=== PATIENT | male | born 1995 | race Caucasian/White ===

== ENCOUNTER 2025-07-22 07:57 | Outpatient (OUT) | payer BC, SELFPAY ==
--- NOTE | 2025-07-22 08:11 | ECG_ITS ---
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
--- NOTE | 2025-07-22 08:48 | PM.PRESUREVA ---
History of Present Illness History of Present Illness Chief complaint: Left Ureteral Stone Narrative: Patient presents for presurgical testing. The patient states he was diagnosed with a kidney stone about 7 weeks ago and was hoping the stone would pass, but he feels that the stone has not moved and he is continuing to have left sided groin pain. He denies flank pain, dysuria, hematuria, nausea, vomiting, or any other complaints. Review of Systems ROS Narrative REVIEW OF SYSTEMS: Negative except as stated in HPI, ten or more systems reviewed. Constitutional: No fever, chills, weakness ENT: No sore throat or epistaxis Cardiovascular: No edema, chest pain, palpitations, or activity intolerance Respiratory: No shortness of breath, cough, or wheezing Musculoskeletal: No joint pain or swelling Gastrointestinal: No abdominal pain, constipation, diarrhea, or vomiting Genitourinary: No dysuria or hematuria Neurological: No numbness, tingling, weakness, or headache Psychiatric: No mood changes PFSH PFSH Medical History (Updated 07/22/25 @ 08:52 by Mare Jurado NP) Left ureteral stone ?N20.1 - Calculus of ureter (ICD-10) Knee pain ?M25.569 - Pain in unspecified knee (ICD-10) Back pain ?M54.9 - Dorsalgia, unspecified (ICD-10) Migraine ?G43.909 - Migraine, unspecified, not intractable, without status migrainosus (ICD-10) Prostatitis ?N41.9 - Inflammatory disease of prostate, unspecified (ICD-10) Kidney stones ?N20.0 - Calculus of kidney (ICD-10) Heartburn ?R12 - Heartburn (ICD-10) Arrhythmia ?I49.9 - Cardiac arrhythmia, unspecified (ICD-10) Hypertension ?I10 - Essential (primary) hypertension (ICD-10) Surgical History (Updated 07/22/25 @ 08:32 by Mare Jurado NP) History of wisdom tooth extraction ?K08.409 - Partial loss of teeth, unspecified cause, unspecified class (ICD-10) Family History (Updated 07/22/25 @ 08:32 by Mare Jurado NP) Other Family history of DVT Family history of cancer Family history of diabetes mellitus Family history of renal failure Macular degeneration Social History (Updated 07/22/25 @ 08:27 by Mare Jurado NP) Within the past year, how often did you have a drink containing alcohol: never Score interpretation: A score less than 4 is consistent with normal alcohol consumption. Smoking status: Never smoker Non-prescribed substance use: denies use Previous occupational history: PT Highest level of school completed/degree received: Doctoral degree Meds Home Medications and Allergies Home Medications ?Medication ?Instructions ?Recorded ?Confirmed ?Type alfuzosin 10 mg tablet,extended 10 mg PO DAILY 07/22/25 07/22/25 History release 24 hr dutasteride 0.5 mg capsule 0.5 mg PO DAILY 07/22/25 07/22/25 History losartan 25 mg tablet 25 mg PO QPM 07/22/25 07/22/25 History Allergies Allergy/AdvReac Type Severity Reaction Status Date / Time No Known Drug Allergies Allergy Verified 07/22/25 08:25 Exam Narrative Exam Narrative: Constitutional: Awake, alert, comfortable, well-appearing, nontoxic, interactive, vital signs as charted Head: Normocephalic, atraumatic Neck: Supple, normal appearance, normal range of motion, no meningeal signs, no lymphadenopathy Respiratory: No respiratory distress, breath sounds clear Cardiovascular: Regular rate and rhythm, strong and regular heart tones Abdomen: Nontender, normal bowel sounds, soft, no CVA tenderness Musculoskeletal: Normal gait, no swelling or edema Skin: No rashes or induration, no lesions, only visible skin inspected Neuro: No neurological deficits, normal sensation Psychiatric: Oriented ?3, normal affect Assessment and Plan Assessment and Plan (1) Left ureteral stone: Plan Cystoscopy, left retrograde, left ureteroscopy, holmium vs. thulium laser, possible left stent placement schedule Dr. Arnett July 24, 2025
[2025-07-22 08:59] LABS: Hematocrit 44.2 % (42.0-54.0); Hemoglobin 15.3 g/dL (14.0-18.0); Immature Granulocytes Abs Auto 0.01 10^3/uL (0.00-0.03); Immature Granulocytes Pct Auto 0.2 % (0.0-0.5); Lymphocytes Absolute Auto 1.9 10^3/uL (1.2-3.8); Mean Corpuscular HGB Conc 34.6 g/dL (29.9-35.2); Mean Corpuscular Hemoglobin 29.7 pg (25.9-34.0); Mean Corpuscular Volume 85.7 fL (80.0-94.0); Platelet Count 163 10^3/uL (150-450); Red Blood Count 5.16 10^6/uL (4.70-6.10); White Blood Count 5.9 10^3/uL (4.0-11.0)
[2025-07-22 09:13] LABS: INR 1.03; Partial Thromboplastin Time 28.8 sec (22.3-36.2); Prothrombin Time 10.9 sec (9.0-11.6)
[2025-07-22 09:30] LABS: Anion Gap 11.4; Blood Urea Nitrogen 13.0 mg/dL (7.0-18.0); Calcium 8.9 mg/dL (8.5-10.1); Carbon Dioxide 27.5 mmol/L (21.0-32.0); Chloride 105 mmol/L (98-107); Estimated GFR (African America >60 (>=60 mL/min/1.73m^2); Estimated GFR (Non-African Ame >60 (>=60 mL/min/1.73m^2); Glucose 97 mg/dL (74-106); Potassium 3.9 mmol/L (3.5-5.1); Sodium 140 mmol/L (136-145)
== END 2025-07-22 07:58 | disposition home or self-care (01) ==
PROVIDERS: Visit Provider Urology
DX: Z01.810 Encounter for preprocedural cardiovascular examination (principal); Z01.812 Encounter for preprocedural laboratory examination; Z01.818 Encounter for other preprocedural examination; N20.1 Calculus of ureter
CPT/HCPCS: 80048; 85025; 85610; 85730; 93005; G0463

== ENCOUNTER 2025-07-24 08:54 | Day surgery (SDC) | payer BC, SELFPAY ==
[2025-07-22 08:44] VITALS: BP 113/77; PULSE 79; TEMP 36.3; O2SAT 97; BMI 31.4
[2025-07-24] VITALS (9 sets, daily range): BP systolic 113–143; BP diastolic 76–85; PULSE 77–98; TEMP 36.1–36.5; O2SAT 95–99; BMI 30.6
[2025-07-24] MEDS: CEFAZOLIN SODIUM 2 GM/50 ML D5W PREMIX IV (11:49)
--- NOTE | 2025-07-24 12:45 | P.URON_ITS ---
Urology Surgery Operative Note Operative Note Procedure Date: 07/24/25 Time Out Performed: yes Pre-op Diagnosis: Left flank pain; 3 to 4 mm distal ureteral calculus plus or minus ureteral stricture Post-op Diagnosis: other (1. Passed ureteral calculus.2. Distal left ureteral stricture) Procedures performed: 1. Cystoscopy. 2. Left ureteral dilation of stricture with 8 and 10 Lithuanian dilators. 3. Left ureteroscopy. 4. Placement of 6 Lithuanian variable length left ureteral stent Anesthesia: SARA Primary Surgeon: Alberto Arnett Complications: None Estimated blood loss (mL): 5 Findings: 1. Distal left ureteral stricture. 2. Passed ureteral calculus. Specimens: None Drains: 6 Lithuanian variable length left ureteral stent Indications for Procedures: This gentleman has a 3 to 4 mm distal left ureteral calculus that he has been unable to pass for weeks. He has been having intermittent left flank pain and left lower quadrant abdominal pain. He is desirous for stone extraction plus or minus dilation of stricture and possible stent placement. He signed an informed consent after risks were explained. Detailed description of Procedure: The patient was brought to the operating room and placed on the operating room table in the supine position. SCDs were placed on the lower extremities and turned on and functioning during the entire case. Timeout was done by all parties in the room. We all agreed upon the patient's identification and the planned procedures for this patient. Genn. anesthesia was then administered. The patient was then repositioned into the modified dorsal lithotomy position. All pressure points were satisfactorily padded. Genitalia were sterilely prepped and draped in usual fashion. I started by passing a 22 Lithuanian Olympus cystoscope per urethra and into the bladder. The anterior urethra was normal. The prostatic urethra was short and with by lobar hypertrophy. Careful panendoscopy in the bladder revealed no evidence of any stones tumors or lesions. Of note is that the left UO was erythematous and edematous. While using fluoroscopy I was unable to appreciate a stone along the course of the distal left ureter. I passed a Glidewire through the scope and cannulated the left ureter and got it up into the kidney. I then used an 8 and 10 Lithuanian rigid dilator to dilate the distal ureter. I could feel it popped through a stricture during the dilation. The cystoscope was removed and I then passed a semirigid ureteroscope adjacent to the wire through the urethra into the bladder and into the left ureter. I scoped up to the L5 position and back down. There was no evidence of stones. The distal left ureter did reveal an area of previous stricture. The ureteroscope was removed. The cystoscope was backloaded over the wire and passed into the bladder and I then slid a 6 Lithuanian variable length stent over the wire up to the kidney. The wire was removed and there were good curls in the kidney and in the bladder. The bladder was drained of its contents and the scope was then removed. The anesthetic was then reversed. He was then transfer red to a [facility] bed and wheeled to PACU in stable condition.
[2025-07-24] MEDS: SOLIFENACIN SUCCINATE 10 MG TABLET PO (13:03)
== END 2025-07-24 14:15 | disposition home or self-care (01) ==
LOC: SURGOUT 08:54
PROVIDERS: Visit Provider Urology
PROC: (CPT 00910; principal; 2025-07-24 10:35)
DX: N20.1 Calculus of ureter (principal); N13.5 Crossing vessel and stricture of ureter without hydronephrosis; J45.909 Unspecified asthma, uncomplicated; I10 Essential (primary) hypertension; K21.9 Gastro-esophageal reflux disease without esophagitis; E78.5 Hyperlipidemia, unspecified; G47.9 Sleep disorder, unspecified
CPT/HCPCS: 00910; 52332; 52344; 36415; 76000; J0131; J0690; J1100; J1885; J2250; J2405; J2704; J3010